=== PATIENT | female | born 1970 ===

== ENCOUNTER → 2017-04-19 | Outpatient (CLI) | payer BC, MEDICARE ==
[2017-04-20 22:05] LABS: Alpha Hyrdroxyalprazolam Not Detected (NOTDET); Alpha hydroxytriazolam Not Detected (NOTDET); Alprazolam Not Detected (NOTDET); Confirm Clonazepam LC/MS Not Detected (NOTDET); Confirm Flunitrazepam LC/MS Not Detected (NOTDET); Diazepam Not Detected (NOTDET); Flurazepam Not Detected (NOTDET); Lorazepam Not Detected (NOTDET); Midazolam Not Detected (NOTDET); Temazepam Not Detected (NOTDET)
[2017-04-21 15:15] LABS: Codeine Not Detected (NOTDET); Hydrocodone 63 ng/mL (NOTDET); Hydromorphone Not Detected (NOTDET); Morphine Not Detected (NOTDET); Norhydrocodone 140 ng/mL (NOTDET); Noroxycodone Not Detected (NOTDET)
== END | disposition home or self-care (01) ==
LOC: LAB SRC 11:50
PROVIDERS: Physician Assistant
DX: F33.9 Major depressive disorder, recurrent, unspecified (principal); G90.519 Complex regional pain syndrome I of unspecified upper limb
CPT/HCPCS: G0480